=== PATIENT | male | born 1985 | race Caucasian/White ===

== ENCOUNTER 2016-10-22 09:36 | Emergency (ER) | payer BC ==
[2016-10-22] MEDS ORDERED: METHYLPRED SOD SUCC 125 MG/2 ML VIAL ONE (10:01)
[2016-10-22] MEDS ORDERED: hydrOXYzine 25 MG TAB ONE (10:01)
== END 2016-10-22 10:25 | disposition home or self-care (01) ==
LOC: ER 09:36
DX: X58.XXXA Exposure to other specified factors, initial encounter (principal); L23.7 Allergic contact dermatitis due to plants, except food
CPT/HCPCS: 96372